=== PATIENT | female | born 1955 ===

== ENCOUNTER 2024-11-08 06:00 | Day surgery (SDC) | payer OTHER ==
[2024-11-02 13:35] LABS: RH POSITIVE
[~2024-11-08 06:00] MED LIST: BUSPIRONE HCL7.5 MG; CRESTOR40 MG PO; GLUMETZA1000 MG PO; HYDRALAZINE HCL25 MG PO; ISOSORBIDE DINI30 MG PO; LEXAPRO5 MG PO; TOPROL XL50 M1 PO
[2024-11-08] MEDS ORDERED: METRONIDAZOLE/SODIUM CHLORIDE 500 MG/100 ML PIGGYBACK IV ONE (08:35)
[2024-11-08] MEDS ORDERED: CEFAZOLIN SODIUM 1,000 MG VIAL ONE (08:35)
[2024-11-08] MEDS ORDERED: BUPIVACAINE HCL/MPF 0.5% 30ML VIAL ONE (09:36)
[2024-11-08] MEDS ORDERED: POVIDONE-IODINE 118 ML BOTT TOP ONE (10:15)
[2024-11-08] MEDS ORDERED: SUGAMMADEX SODIUM 200 MG/2 ML VIAL IV ONE (10:57)
[2024-11-08] MEDS ORDERED: LABETALOL HCL 100 MG/20 ML ML ONE (11:43)
[2024-11-08] MEDS ORDERED: MORPHINE SULFATE 4 MG/ML VIAL IV ONE ×2 (11:50→12:20)
== END 2024-11-08 14:06 | disposition home or self-care (01) ==
LOC: CIR.AMB 06:00
PROVIDERS: ATTEND Obstetrics & Gynecology Gynecologic Oncology
DX: D39.11 Neoplasm of uncertain behavior of right ovary (principal); I10 Essential (primary) hypertension; Z91.011 Allergy to milk products